=== PATIENT | male | born 1960 | race Caucasian/White ===

== ENCOUNTER 2023-03-25 12:22 | Emergency (ER) | payer BC, SELFPAY ==
--- NOTE | ~2023-03-25 | XR_ITS ---
XR thoracic spine 3V DATE: 03/25/2023 13:01 INDICATION: Fall backwards and more. Mid back pain. TECHNIQUE: AP, lateral, swimmer views COMPARISON: None FINDINGS: There is cervical spondylosis including severe degenerative disc disease in particular C3-4 , C5-6 and C6-7, moderate degenerative disc disease at C4-5. There is reversal of cervical curvature. Osteopenia. There are 13 pairs of ribs. No fracture or dislocation or bone destruction of the thoracic spine is evident. The thoracic pedicle s are intact. No paraspinal soft tissue thickening is noted. There is minimal dextroscoliosis of the upper thoracic spine and minimal levoscoliosis of the mid to lower thoracic spine. IMPRESSION: Osteopenia Minimal scoliosis Mild degenerative change of the thoracic spine No fracture of the thoracic spine is detected Reversal cervical curvature and severe cervical spondylosis Reviewed, dictated and finalized at location A.
--- NOTE | ~2023-03-25 | XR_ITS ---
XR hip RT min 2V DATE: 03/25/2023 13:01 INDICATION: Fall. Posterior head pain. TECHNIQUE: AP, lateral and crosstable lateral views of right hip COMPARISON: None FINDINGS: There is mild right hip osteoarthritis. No fracture or dislocation, avascular necrosis or b one destruction is detected. The pubic symphysis and right sacroiliac joint are intact. Prominent femoral and deep femoral artery calcification. Bilateral vas deference calcifications, suggesting diabetes IMPRESSION: No fracture or dislocation right hip Mild right hip osteoarthritis Bilateral vas deferens calcifications, suggesting diabetes Reviewed, dictated and finalized at location A.
[2023-03-25 12:30] VITALS: BP 137/94; PULSE 92; RESP 18; TEMP 36.5; O2SAT 99
[2023-03-25 12:42] VITALS: BP 137/94; PULSE 92; RESP 18; TEMP 36.5; O2SAT 99
--- NOTE | 2023-03-25 12:47 | ED.BACK ---
HPI - Back Pain/Injury General Chief Complaint: Back Pain/Injury Stated Complaint: Fall Injury/Back Pain Source: patient Mode of arrival: ambulatory Limitations: no limitations History of Present Illness HPI Narrative: Patient presents patient back pain. He indicates he was getting off his riding lawnmower 2 days ago when his foot got caught on the lawnmower. He landed on his back. He did not his head. No LOC. No vomiting since the episode. He rates the pain in thoracic spinal region as 12 on scale of 1-10. No saddle anesthesia. No bladder or bowel incontinence. He has meloxicam and tramadol at home. They do not seem to be effective for him. He also reports pain in the right buttock following the incident. He does not provide me with a descriptive quality or numerical rating to the pain. He states it is not that bad . Related Data Home Medications Medication Instructions Recorded Confirmed amlodipine 10 mg tablet 10 mg PO DAILY 03/25/23 03/25/23 tramadol 50 mg tablet 50 mg PO HS 03/25/23 03/25/23 Allergies Allergy/AdvReac Type Severity Reaction Status Date / Time No Known Allergies Allergy Verified 03/25/23 12:41 Review of Systems Review of Systems: CONSTITUTIONAL: Denies fever, chills, or sweats. EYES: Denies visual changes, redness, or discharge. ENT: Denies rhinorrhea, congestion, sore throat, or otalgia. CARDIOVASCULAR: Denies chest pain, palpitations, or edema. RESPIRATORY: Denies cough or dyspnea. GASTROINTESTINAL: Denies abdominal pain, nausea, vomiting, or diarrhea. GENITOURINARY: Denies dysuria or hematuria. SKIN: Denies rash or itching. MUSCULOSKELETAL: Reports back pain and pain in right buttock NEUROLOGIC: Denies headache, numbness, dizziness, or weakness. PSYCHIATRIC: Denies anxiety or depression. [facility] Past Medical History Medical History Hypertension Surgical History Surgical History History of surgery on lower extremity Family History Family History Mother Family history non-contributory Social History Social History Smoking status: Current some day smoker Tobacco type: cigars Alcohol intake: current Drinks per week: 60 Substance use: current Substance use type: marijuana Gender identity (if verbalized by the patient): Male Exam Narrative: GENERAL: Well-appearing, well-nourished, and in no acute distress. HEAD: Normocephalic, atraumatic. EYES: PERRLA and EOMI. ENT: Nares clear, no rhinorrhea or epistaxis. Mucous membranes moist. Oropharynx without tonsillar hypertrophy exudate or other lesions. Bilateral TMs pearly winkler nonbulging NECK: Supple. No adenopathy or masses. No carotid bruits or JVD CHEST: Clear to auscultation. No respiratory distress. No wheezes rales or rhonchi HEART: Regular rate and rhythm. No murmur heard. Normal peripheral pulses. ABDOMEN: Soft, nontender, nondistended, normal active bowel sounds. BACK: Tenderness noted in midline of thoracic spine. No tenderness in lumbar spine, over pelvis or hips EXTREMITIES: Normal range of motion. No edema. SKIN: Warm, dry, no rash. NEURO: No focal deficits. Alert and oriented x3. PSYCH: Normal mood and affect. Course Course Emergency Course: This is a 62-year-old male who presented for evaluation of back pain and right hip pain following a fall. X-rays negative for fracture. Exam consistent with contusion. He has tramadol and meloxicam at home. I did offer to give him a script for lidocaine patches. He declined. Follow up with primary provider. Go to the ER for intractable pain or difficulty breathing. Patient in agreement with care. Level of Care: Express Care Visit Vital Signs Vital signs: Vital Signs Temperature 36.5 C 03/25/23
== END 2023-03-25 13:26 | disposition home or self-care (01) ==
PROVIDERS: Emergency Provider Nurse Practitioner; PCP Hospitalist
DX: S20.224A Contusion of middle back wall of thorax, initial encounter (principal); S70.01XA Contusion of right hip, initial encounter; W19.XXXA Unspecified fall, initial encounter; F17.290 Nicotine dependence, other tobacco product, uncomplicated; I10 Essential (primary) hypertension
CPT/HCPCS: 72072; 73502; 99214; G0463